=== PATIENT | male | born 1955 | race Caucasian/White ===

== ENCOUNTER → 2017-04-15 | Day surgery (SDC) | payer OTHER ==
[~2017-04-15] MED LIST: ASPIRIN81 M2 PO; ASPIRIN81 MG PO; ATENOLOL50 MG PO; ATORVASTATIN CA80 MG PO; B COMPLEX1 EACH PO; B-COMPLEX-VITA1 EACH PO; BRILINTA90 MG PO; BUSPAR5 M1 PO; CENTRUM SILVER PO; CENTRUM SILVER1 EAC2 PO; CLOPIDOGREL75 MG PO; CYMBALTA30 M1 PO; DUCOLAX PO; GABAPENTIN300 MG PO; IMDUR-ER30 M1 PO; METOPROLOL TAR25 MG PO; NITROGLYGERIN0.4 MG SL; NORCO 10-325 TA1 TAB PO; NORCO 10/3251 TAB DOB; OMEPRAZOLE40 M1 PO; PRILOSEC PO; PRILOSEC40 MG PO; TOPAMAX25 MG PO; ZETIA PO; ZOCOR PO
--- NOTE | ~2017-04-15 | OR ---
Unit #: [id number] #: [id number] Patient: IVÁN KWON JR [id number] [address] [place], [place] [address] [id number] MR#: [id number] NAME: IVÁN KWON JR ROOM: Date of Procedure: 04/15/2017 Admission Date: 04/15/2017 Surgeon: Augie Gordillo M.D. : 1955 Attending Physician: Augie Gordillo M.D. Primary Care Physician: Sylvie Biggs M.D. OPERATIVE REPORT PREOPERATIVE DIAGNOSIS Colorectal cancer screening in an average-risk patient. PROCEDURE PERFORMED Colonoscopy up to cecum and terminal ileum with excellent preparation and good visualization. POSTOPERATIVE DIAGNOSES The patient had mild sigmoid and descending colon diverticulosis. Otherwise, examination was normal up to cecum and terminal ileum. The quality of the prep was good. No polyps were found. RECOMMENDATIONS Repeat colonoscopy in 10 years. SEDATION USED MAC. DESCRIPTION OF PROCEDURE Following detailed explanation of the potential risks and complications of a colonoscopy, namely perforation, bleeding, and complications related to sedation, the patient was brought to GI lab and laid in the left lateral decubitus position. A digital rectal examination was performed, which was normal. Lubricated tip of the Olympus video colonoscope was inserted through the anus and advanced under direct vision. The scope was advanced past rectosigmoid into descending colon. Multiple small diverticula were seen in this area. The scope tip was then navigated all the way up to cecum with visualization of the ileocecal valve and the appendiceal orifice. Preparation was excellent with good visualization and photodocumentation was obtained. Last few inches of the terminal ileum were also visualized after intubation of the ileocecal valve and appeared normal. Successive segments of the colonic mucosa were examined upon withdrawal and appeared unremarkable. There being no polyps, mass lesions, or AVMs. Other than the scant diverticula seen in the left side, no other abnormalities were found. The patient did not have any internal hemorrhoids at the anal verge. The scope was then withdrawn and the patient returned to the recovery area. He tolerated the procedure without any postprocedure complications. Dictated by... Augie Gordillo M.D. Unit #: [id number] #: [id number] Patient: IVÁN KWON JR TD: 04/15/2017 19:37 JOB #: [id number] CC: . OPERATIVE REPORT Page 1 of 1 X Augie Gordillo MD PROCEDURE OPERATIVE NOTE
== END | disposition home or self-care (01) ==
LOC: COPS 11:33
DX: Z12.11 Encounter for screening for malignant neoplasm of colon (principal); K57.30 Diverticulosis of large intestine without perforation or abscess without bleeding; I25.10 Atherosclerotic heart disease of native coronary artery without angina pectoris; K21.9 Gastro-esophageal reflux disease without esophagitis; M17.0 Bilateral primary osteoarthritis of knee; M16.0 Bilateral primary osteoarthritis of hip; I10 Essential (primary) hypertension; E78.5 Hyperlipidemia, unspecified; Z79.82 Long term (current) use of aspirin; Z98.890 Other specified postprocedural states; Z95.5 Presence of coronary angioplasty implant and graft; Z89.622 Acquired absence of left hip joint; Z89.621 Acquired absence of right hip joint; Z89.522 Acquired absence of left knee; Z89.521 Acquired absence of right knee; Z79.899 Other long term (current) drug therapy; Z79.01 Long term (current) use of anticoagulants